=== PATIENT | female | born 1970 | race Caucasian/White ===

== ENCOUNTER 2024-06-24 13:22 | Outpatient (OUT) | payer OTHER, SELFPAY ==
--- NOTE | 2024-06-24 13:39 | XR_ITS ---
[facility] [id number] Patient Name: NIYA ALEXANDER MRN: [id number] date: 1970 Sex: F Assigned Patient Location: [facility] Current Patient Location: [facility] Accession/Order Number: [id number] Exam Date: 06/24/2024 14:10 Report Date: 06/24/2024 14:11 At the request of: ROSSY GUNDERSON Procedure: XR chest 2V PA AND LATERAL CHEST: CLINICAL HISTORY: Shortness of breath, cough and chest pain for the past 3 weeks. Bronchitis COMPARISON: 02/28/2020 There is no focal parenchymal consolidation, effusion or pneumothorax. The cardiac, hilar and mediastinal silhouettes are within normal limits. There is no vascular congestion. The visualized bony thorax is intact. Moderate thoracolumbar dextroscoliotic curvature is again noted. There is endplate spurring at the spine. XR/XR chest 2V IMPRESSION: NO ACUTE CARDIOPULMONARY ABNORMALITY. Impression dictated by: Bren aCbral M.D.06/24/2024 2:11 PM Dictation Location: [facility] Electronically authenticated by: [id number] Y Date: 06/24/2024 14:11
== END 2024-06-24 13:23 | disposition home or self-care (01) ==
LOC: RAD 13:32
PROVIDERS: PCP Family Medicine; Visit Provider Family Medicine
DX: J40 Bronchitis, not specified as acute or chronic (principal)
CPT/HCPCS: 71046